=== PATIENT | female | born 1985 | race Caucasian/White ===

== ENCOUNTER 2016-12-24 08:58 | Emergency (ER) | payer OTHER ==
[~2016-12-24] VITALS: Ht 157.5 cm; Wt 113.0 kg
[2016-12-24 09:25] VITALS: Ht 157.5 cm; Wt 113.0 kg
[2016-12-24 10:38] LABS: URINE BLOOD (Dip) POC Negative (NEGATIVE)
--- NOTE | 2016-12-24 10:59 | RADRPT ---
PROCEDURE: Chest Radiograph. CLINICAL INDICATION: Chest pain TECHNIQUE: Single frontal chest radiograph. COMPARISON: None available FINDINGS: The cardiomediastinal silhouette is within normal limits. There is dense right mid lung zone atelec tasis. There is mild bibasilar atelectasis. No infiltrate or effusion is seen. The bones are int act. IMPRESSION: 1. No evidence of acute cardiopulmonary disease. 2. Right mid lung zone atelectasis. RPTAT: KK .Nima Taylor MD, MD Date Time Electronically viewed and signed by .Nima Taylor MD, on 12/24/2016 10:58 .B/
[2016-12-24] MEDS ORDERED: NAPR-260 PO (11:20)
--- NOTE | 2016-12-24 11:45 | ERD ---
ER Documentation Chief Complaint Date/Time DATE: 12/24/16 TIME: 10:57 Chief Complaint LT RIB PAIN AFTER "SLEEPING IN BRA" W/ LT ARM NUMBNESS HPI Patient is a 31-year-old female who presents to the ED with left rib pain after sleeping in her bra 2 days ago. She states that after she removed her bra which she normally never sleeps in, she had pain in the left rib and pain in her left side. She also states that today she had some numbness and tingling from her shoulder to her left wrist. She states that she has tenderness to the area when she pushes. She also complains of mild shortness of breath due to the pain. She denies chest pain or difficulty breathing. She denies headache or dizziness. Neck pain or stiffness. She denies taking any medication for her symptoms. She denies any heart conditions in the family. ROS All systems reviewed and are negative except as per history of present illness. PMhx/Soc Hx Psychiatric Problems: Yes (PSYCH PROBLEMS) Hx Miscellaneous Medical Probl: Yes (DM) Physical Exam Vitals Vital Signs Date Time Temp Pulse Resp B/P Pulse Ox O2 Delivery O2 Flow Rate FiO2 12/24/16 09:25 98.2 97 20 117/62 96 Physical Exam GENERAL: Well-developed, well-nourished female. Appears in no acute distress. NECK: Supple. No lymphadenopathy or thyromegaly. No meningismus. negative kernig. negative brudinski. LUNG: Clear to auscultation bilaterally. No rhonchi, wheezing, rales or coarse breath sounds. tenderness to left lower ribs, underneath left breast. HEART: Regular rate and rhythm. No murmurs, rubs or gallops. ABDOMEN: No scars, ecchymosis or rashes noted. Soft, nontender, and nondistended. Positive bowel sounds in all four quadrants. No rebound tenderness , no guarding. (-) McBurneys point tenderness. No CVA tenderness. BACK: No midline tenderness. Extremities: Equal pulses bilaterally. No peripheral clubbing, cyanosis or edema. No unilateral leg swelling. radius, ulnar and median nerve intact. sensation intact. tenderness to left rib with arm movement. NEUROLOGIC: Alert and oriented. Moving all four extremities. 5/5 strength in all extremities. Normal speech. Steady gait. SKIN: Normal color. Warm and dry. No rashes or lesions. Capillary refill < 2 seconds Results 24 hrs Laboratory Tests Test 12/24/16 10:37 Bedside Urine pH (LAB) 6.0 Bedside Urine Protein (LAB) 1+ Bedside Urine Glucose (UA) Negative Bedside Urine Ketones (LAB) Negative Bedside Urine Blood Negative Bedside Urine Nitrite (LAB) Negative Bedside Urine Leukocyte Esterase (L Trace Procedures/MDM ER COURSE: I kept the patient and/or family informed of laboratory and diagnostic imaging results throughout the emergency room course. IMAGING STUDIES [place] [id number] Radiology Main Line: [phone] DIAGNOSTIC IMAGING REPORT Patient: ELISEO JEFFERS : 1985 Age: 31 Sex: F MR #: [id number] DOS: 12/24/16 1021 Ordering MD: VISHNU BLANCO PA-C Location: [facility] Room/Bed: PROCEDURE: Chest Radiograph. CLINICAL INDICATION: Chest pain TECHNIQUE: Single frontal chest radiograph. COMPARISON: None available FINDINGS: The cardiomediastinal silhouette is within normal limits. There is dense right mid lung zone atelectasis. There is mild bibasilar atelectasis. No infiltrate or effusion is seen. The bones are intact. IMPRESSION: 1. No evidence of acute cardiopulmonary disease. 2. Right mid lung zone atelectasis. RPTAT: KK .Nima Taylor MD, MD Date Time Electronically viewed and signed by .Nima Taylor MD, MD on 2016 10:58 .B/ CC: VISHNU BLANCO PA-C EKG performed, read by Dr [email or web address] [default value]bpm, normal sinus rhythm, normal axis, no acute ST segment changes, no T wave inversion MEDICAL DECISION MAKING: This is a 31-year-old female who presents with rib pain after prolonged use of her bra.. Vital signs were reviewed. Patient is afebrile. Patient is not hypoxic. Patient is not toxic or ill-appearing. Patient likely has muscle strain versus muscle sprain. She is tender on examination and reproducible upon palpation and movement of her left arm. And I have low suspicion for cardiac emergency. Her x-rays read by radiologist is unremarkable low suspicion for ACS, PE, AAA, dissection, DVT. DISCHARGE: At this time, patient is stable for discharge and outpatient management with no new complaints during the ER course. Patient was sent home with Kassieyn for pain. Patient will be discharged home with instructions to recheck for new or worsening symptoms such as fever, nausea, weakness, LOC and to follow up with primary care in the next 1-2 days. Patient was advised to return to the ER for any new or worsening symptoms. Plan was discussed and patient and/or family understands and agrees. Home instructions were given. Departure Diagnosis: Primary Impression: Rib pain Condition: Stable VISHNU BLANCO PA-C Dec 24, 2016 11:07
== END 2016-12-24 12:12 | disposition home or self-care (01) ==
LOC: FTE 08:58
DX: R07.81 Pleurodynia (principal); E11.9 Type 2 diabetes mellitus without complications
CPT/HCPCS: 71010; 81003; 93005; Z7502